=== PATIENT | male | born 1970 | race Caucasian/White ===

== ENCOUNTER 2017-03-20 10:48 | Inpatient (IN) | payer MEDICARE, MEDICAID ==
[~2017-03-20] VITALS: Ht 177.8 cm; Wt 81.1 kg
[~2017-03-20 10:48] MED LIST: ATOR20TA86 PO; IBUP-2071 PO; LISI-662 PO; LITH300C3 PO; OXYC10 PO; PROP40TA7 PO; RANI150T7 PO; SERT100T12 PO; VALP250 PO
[2017-03-20] MEDS ORDERED: LURA20TA PO (11:05)
[2017-03-20] MEDS ORDERED: OMEP20 PO (11:05)
[2017-03-20 11:24] LABS: EOSINOPHILS % (AUTO) 0.4 % (1.0-6.0); HEMATOCRIT 45.3 % (41-53); HEMOGLOBIN 15.8 g/dL (13.5-17.5); LYMPHOCYTES # (AUTO) 1.4 K/uL (1.0-4.8); LYMPHOCYTES % (AUTO) 12.9 % (22.0-44.0); MEAN CORPUSCULAR HEMOGLOBIN 31.1 pg (26.0-34.0); MEAN CORPUSCULAR HGB CONC 34.9 G/dL (31.0-37.0); MEAN CORPUSCULAR VOLUME 89 fL (80-100); MONOCYTES # (AUTO) 0.7 K/uL (0.1-1.0); MONOCYTES % (AUTO) 6.8 % (2.0-9.0); NEUTROPHILS # (AUTO) 8.4 K/uL (1.8-7.7); NEUTROPHILS % (AUTO) 79.9 % (40.0-70.0); PLATELET COUNT (AUTO) 214 K/uL (150-450); WHITE BLOOD COUNT (AUTO) 10.5 K/uL (4.5-11.0)
[2017-03-20 11:35] LABS: ANION GAP 15 mmol/L (8-16); CALCIUM, TOTAL 9.4 mg/dL (8.8-10.5); CARBON DIOXIDE 23 mmol/L (22-29); CHLORIDE 98 mmol/L (98-107); CREATININE 0.97 mg/dL (0.60-1.30); GLOMERULAR FILTR. RATE CALC > 60 mL/min (>60); POTASSIUM 3.6 mmol/L (3.5-5.1); SODIUM SERUM 136 mmol/L (136-145); UREA NITROGEN, BLOOD 12 mg/dL (7-18)
[2017-03-20 11:41] LABS: ALANINE AMINOTRANSFERASE 23 U/L (12-78); ALBUMIN 4.6 g/dL (3.4-5.0); ASPARTATE AMINOTRANSFERASE 18 U/L (15-37); BILIRUBIN,TOTAL 1.1 mg/dL (0.1-1.0); TOTAL PROTEIN, SERUM 8.5 g/dL (6.4-8.2)
[2017-03-20] MEDS ORDERED: ZOLPIDEM TARTRATE 10 MG TABLET PO PRN (11:45)
[2017-03-20] MEDS ORDERED: HALOPERIDOL 5 MG TABLET PO PRN (11:45)
[2017-03-20 14:03] VITALS: BP 118/68
[2017-03-20] MEDS: LORazepam 2 MG TABLET PO PRN (14:23)
[2017-03-20 17:09] VITALS: BP 123/73
[2017-03-20] MEDS: LISINOPRIL 20 MG TABLET PO SCH (18:31)
[2017-03-20] MEDS: RANITIDINE HCL 150 MG TABLET PO SCH (18:31)
[2017-03-20] MEDS: ATORVASTATIN CALCIUM 20 MG TABLET PO SCH (18:32)
[2017-03-20] MEDS: OMEPRAZOLE 20 MG CAPSULE PO SCH (18:32)
[2017-03-20] MEDS: PROPRANOLOL HCL 40 MG TABLET PO SCH (21:47)
[2017-03-20 21:48] VITALS: BP 114/67
[2017-03-20] MEDS ORDERED: MAG HYDROX/AL HYDROX/SIMETH ES 30 ML SUSPENSION UDCUP PO PRN ×2 (22:15→22:30)
[2017-03-21 06:10] VITALS: BP 110/63
[2017-03-21 08:17] VITALS: BP 99/58
[2017-03-21 08:28] LABS: CHOL/HDL RATIO 4.8 (4.2-7.3)
[2017-03-21] MEDS: LISINOPRIL 20 MG TABLET PO SCH (09:00)
[2017-03-21] MEDS: PROPRANOLOL HCL 40 MG TABLET PO SCH ×2 (09:00→16:47)
[2017-03-21] MEDS: ATORVASTATIN CALCIUM 20 MG TABLET PO SCH (09:22)
[2017-03-21] MEDS: RANITIDINE HCL 150 MG TABLET PO SCH ×2 (09:22→16:46)
[2017-03-21] MEDS: OMEPRAZOLE 20 MG CAPSULE PO SCH (09:22)
[2017-03-21 09:30] VITALS: BP 104/63
[2017-03-21] MEDS: RisperiDONE 1 MG TABLET PO SCH (10:36)
[2017-03-21] MEDS: SERTRALINE HCL 100 MG TABLET PO SCH (10:36)
[2017-03-21] MEDS: DIVALPROEX SODIUM 250 MG DR TABLET PO SCH ×2 (12:18→16:47)
[2017-03-21 16:52] VITALS: BP 131/73
[2017-03-22 00:06] VITALS: BP 114/79
[2017-03-22 08:11] VITALS: BP 138/82
[2017-03-22] MEDS: OMEPRAZOLE 20 MG CAPSULE PO SCH (08:13)
[2017-03-22] MEDS: DIVALPROEX SODIUM 250 MG DR TABLET PO SCH ×3 (08:13→16:38)
[2017-03-22] MEDS: RisperiDONE 1 MG TABLET PO SCH (08:13)
[2017-03-22] MEDS: ATORVASTATIN CALCIUM 20 MG TABLET PO SCH (08:13)
[2017-03-22] MEDS: PROPRANOLOL HCL 40 MG TABLET PO SCH ×2 (08:13→16:38)
[2017-03-22] MEDS: LISINOPRIL 20 MG TABLET PO SCH (08:13)
[2017-03-22] MEDS: RANITIDINE HCL 150 MG TABLET PO SCH ×2 (08:13→16:38)
[2017-03-22] MEDS: SERTRALINE HCL 100 MG TABLET PO SCH (08:14)
[2017-03-22 16:06] VITALS: BP 125/68
[2017-03-22] MEDS: LORazepam 2 MG TABLET PO PRN (19:57)
[2017-03-23 01:36] VITALS: BP 132/77
[2017-03-23] MEDS: RisperiDONE 1 MG TABLET PO SCH (08:20)
[2017-03-23] MEDS: LISINOPRIL 20 MG TABLET PO SCH (08:20)
[2017-03-23] MEDS: RANITIDINE HCL 150 MG TABLET PO SCH (08:20)
[2017-03-23] MEDS: DIVALPROEX SODIUM 250 MG DR TABLET PO SCH ×2 (08:20→12:23)
[2017-03-23] MEDS: ATORVASTATIN CALCIUM 20 MG TABLET PO SCH (08:20)
[2017-03-23] MEDS: SERTRALINE HCL 100 MG TABLET PO SCH (08:20)
[2017-03-23] MEDS: PROPRANOLOL HCL 40 MG TABLET PO SCH (08:20)
[2017-03-23] MEDS: OMEPRAZOLE 20 MG CAPSULE PO SCH (08:20)
[2017-03-23 08:43] VITALS: BP 117/80
[2017-03-23] MEDS ORDERED: RISP1 PO (12:16)
== END 2017-03-23 13:15 | disposition home or self-care (01) | DRG 885 ==
LOC: EMS 10:50 → B2X 12:35
PROVIDERS: ADMIT Psychiatry & Neurology Child & Adolescent Psychiatry; ATTEND Psychiatry & Neurology Child & Adolescent Psychiatry
DX: F33.3 Major depressive disorder, recurrent, severe with psychotic symptoms (principal); E78.5 Hyperlipidemia, unspecified; F14.10 Cocaine abuse, uncomplicated; F10.10 Alcohol abuse, uncomplicated; I10 Essential (primary) hypertension; K21.9 Gastro-esophageal reflux disease without esophagitis; Z79.899 Other long term (current) drug therapy; Z71.41 Alcohol abuse counseling and surveillance of alcoholic; Z71.51 Drug abuse counseling and surveillance of drug abuser
CPT/HCPCS: 99285; G0480